=== PATIENT | female | born 1950 | race American Indian/Alaskan Native ===

== ENCOUNTER 2016-05-23 21:38 | Emergency (ER) | payer MEDICARE, OTHER ==
[2016-05-23 23:06] LABS: Basophils % (Auto) 0.7 % (0.0-1.8); Eosinophils % (Auto) 2.6 % (0.0-4.3); Hematocrit 37.8 % (30.3-42.9); Hemoglobin 11.9 gm/dl (10.1-14.3); Mean Corpuscular HGB Conc 32 % (30-34); Platelet Count 306 K/mm3 (140-440); Red Cell Distribution Width 16.2 % (13.2-15.2); White Blood Count 5.5 K/mm3 (4.5-11.0)
[2016-05-23 23:11] LABS: Mean Corpuscular Hemoglobin 21 pg (28-32); Mean Corpuscular Volume 67 fl (79-97)
[2016-05-23 23:17] LABS: Anion Gap 19 mmol/L; BUN/Creatinine Ratio 12.85; Blood Urea Nitrogen 9 mg/dL (7-17); Calcium 9.4 mg/dL (8.4-10.2); Carbon Dioxide 25 mmol/L (22-30); Chloride 99.9 mmol/L (98-107); Glucose 123 mg/dL (65-100); Potassium 3.1 mmol/L (3.6-5.0); Sodium 141 mmol/L (137-145)
--- NOTE | 2016-05-24 02:26 | Emergency Department Report ---
ED Chest Pain HPI - General Chief Complaint: Chest Pain Stated Complaint: RT RIB PAIN Time Seen by Provider: 05/24/16 02:05 Source: patient Mode of arrival: Ambulatory Limitations: No Limitations - History of Present Illness Initial Comments: This is a 66-year-old Afro-[place] female who presents to the emergency department, driven in by her son, with complaint of a one-week history of right sided chest/chest wall pain. It radiates around to the back. She denies any shortness of breath, nausea, vomiting or diaphoresis. She denies any trauma. She was seen by her primary care doctor on Saturday, Dr. Semaj Canales, and was prescribed some medication for GERD, pain medication, and an antibiotics for a UTI at that time. Patient has a history of hypertension but denies any history of CO, CVA, PE/DVT. She denies tobacco or illicit drug use or abuse. No recent travel or sick contacts at home. Severity scale (0 -10): 10 - Related Data Previous Rx's Medication Instructions Recorded Last Taken Type HYDROcodone/APAP 5-325 [Rice 1 each PO Q6HR PRN #12 tablet 05/24/16 Unknown Rx 5/325] Allergies Allergy/AdvReac Type Severity Reaction Status Date / Time Sulfa (Sulfonamide Allergy Vomiting Verified 05/23/16 22:02 Antibiotics) BJ score - Bj Score Age > 65: (0) No Aspirin use within the Past 7 Days: (0) No 3 or more CAD Risk Factors: (0) No 2 or more Angina events in past 24 hrs: (1) Yes Known CAD with more than 50% Stenosis: (0) No Elevated Cardiac Markers: (0) No ST Deviation Greater than 0.5mm: (0) No BJ Score: 1 ED Review of Systems ROS: Stated complaint: RT RIB PAIN Other details as noted in HPI Comment: All other systems reviewed and negative Constitutional: denies: chills, fever Eyes: denies: eye pain, eye discharge, vision change ENT: denies: ear pain, throat pain Respiratory: denies: cough, shortness of breath, wheezing Cardiovascular: chest pain. denies: palpitations Gastrointestinal: denies: abdominal pain, nausea, diarrhea Genitourinary: denies: urgency, dysuria, discharge Musculoskeletal: back pain. denies: arthralgia Skin: denies: rash, lesions Neurological: denies: headache, weakness, paresthesias ED Past Medical Hx - Past Medical History Previous Medical History?: Yes Hx Hypertension: Yes - Surgical History Past Surgical History?: Yes Hx Cholecystectomy: Yes - Social History Smoking Status: Never Smoker Substance Use Type: Prescribed - Medications Home Medications: Home Medications Medication Instructions Recorded Confirmed Last Taken Type HYDROcodone/APAP 5-325 [Rice 1 each PO Q6HR PRN #12 tablet 05/24/16 Unknown Rx 5/325] ED Physical Exam - General Limitations: No Limitations - Other Other exam information: GENERAL: The patient is well-developed well-nourished. HEENT: Normocephalic. Atraumatic. Extraocular motions are intact. Patient has moist mucous membranes. Pupils equal reactive to light bilaterally. NECK: Supple. Trach is midline. CHEST/LUNGS: Patient has reproducible tenderness to palpation to the right rib cage/chest wall, just below the breast. No tachypnea or accessory muscle use. There is no respiratory distress noted. HEART/CARDIOVASCULAR: Regular. There is no tachycardia. There is no gallop rub or murmur. ABDOMEN: Abdomen is soft, nontender. Patient has normal bowel sounds. There is no abdominal distention. SKIN: Skin is warm and dry. NEURO: The patient is awake, alert, and oriented. The patient is cooperative. The patient has no focal neurologic deficits. The patient has normal speech. MUSCULOSKELETAL: There is no tenderness or deformity. There is no limitation range of motion. There is no evidence of acute injury. ED Course Vital Signs 05/23/16 05/23/16 21:53 22:03 Temperature 98.6 F 98.6 F Pulse Rate 73 73 Respiratory 18 20 Rate Blood Pressure 176/93 Blood Pressure 176/93 176/93 [Right] O2 Sat by Pulse 100 100 Oximetry ED Medical Decision Making - Lab Data Result diagrams: 05/23/16 22:41 05/23/16 22:41 - EKG Data -: EKG Interpreted by Me EKG shows normal: sinus rhythm, axis, intervals, QRS complexes (incomplete right bundle branch block), ST-T waves Rate: normal - EKG Data When compared to previous EKG there are: previous EKG unavailable Interpretation: other (complete right bundle-branch block) - Radiology Data Radiology results: report reviewed, image reviewed interpreted by me: Chest x-ray did not show any acute process. Heart is normal shape and size. No effusions. No pneumothorax. No signs of pneumonia seen. CT angiography of the chest does not show any pulmonary embolism, aortic dissection, aneurysm. There may be some signs of COPD. - Medical Decision Making 66-year-old female presents to the emergency department with a two-week history of some right-sided chest discomfort that radiates towards the back. EKG shows a incomplete right bundle branch block but no ST elevation CO or dysrhythmia. Labs show negative troponins 3. There is some hypokalemia but it is replaced with potassium chloride. There is a d-dimer of [address] angiography of the chest was done. CT does not show any PE, aneurysm or dissection or any acute process. Her discomfort is reproducible to palpation. Vital signs stable throughout her ED course. For all these reasons patient appears safe for discharge home. She was discharged with some pain medication and a referral for cardiology. She will return to the ER with any worsening of her symptoms or any acute distress. - Differential Diagnosis costochondritis, CO, PE, muscle spasm Critical Care Time: No Critical care attestation.: If time is entered above; I have spent that time in minutes in the direct care of this critically ill patient, excluding procedure time. ED Disposition Clinical Impression: Right-sided chest pain, Costochondritis, Hypokalemia Hypertension Qualifiers: Hypertension type: essential hypertension Qualified Code(s): I10 - Essential ( primary) hypertension Disposition: DISCHARGED TO HOME OR SELFCARE Is pt being admited?: No Condition: Stable Instructions: Chest Pain (ED), Costochondritis (ED), Hypertension (ED) Additional Instructions: Please follow-up with your primary care doctor in the next few days. I have also given you a referral for a local golf club head inspector and adjuster, , to follow-up regarding your chest pain as you may be due for an outpatient stress test. Return to the emergency department with any worsening of your symptoms or any acute distress.You've been prescribed a medication that is sedating. Therefore this medication cannot be mixed with alcohol, or taken prior to driving, working , or being responsible for children. Prescriptions: HYDROcodone/APAP 5-325 [Rice 5/325] 1 each PO Q6HR PRN #12 tablet PRN Reason: Pain Referrals: SEMAJ CANALES MD [Primary Care Provider] - 3-5 Days JEFF RIVEAR MD [Staff Physician] - 3-5 Days Time of Disposition: 06:14
--- NOTE | 2016-05-24 05:50 | Cat Scan Report ---
FINAL REPORT PROCEDURE: CT ANGIO CHEST TECHNIQUE: Computerized tomographic angiography of the chest was performed after the IV injection of iodinated nonionic contrast including image processing. The image data was postprocessed using 2-dimensional multiplanar reformatted (MPR) and 3-dimensional (MIP and/or volume rendered) techniques. HISTORY: CP pain, elevated dimer COMPARISON: No prior studies are available for comparison. FINDINGS: Heart and pericardium: Normal. Thoracic aorta: Normal. Pulmonary vasculature: No evidence of pulmonary arterial emboli.. Lymph nodes: No enlarged thoracic lymph nodes. Lungs: Mild COPD. No consolidation, effusion or pneumothorax. The central airway is patent. Pleural space: No effusion, thickening, or pneumothorax. Musculoskeletal structures: No significant abnormality. Upper abdominal structures: No significant abnormality. IMPRESSION: There is no evidence of pulmonary arterial emboli. COPD. No evidence of acute infiltrate or effusion.
[2016-05-24] MEDS: NACL ONE (06:13)
[2016-05-24] MEDS ORDERED: K-DUR PO ONE (06:13)
[2016-05-24] MEDS: MORPHINE IV ONE (06:13)
[2016-05-24] MEDS: K-DUR PO ONE (06:21)
[2016-05-24 06:46] VITALS: BP 106/56
--- NOTE | 2016-05-24 07:15 | XRay Report ---
AP CHEST: HISTORY: chest pain AP view of the chest demonstrates a normal mediastinal and cardiac contour with clear lungs and normal bony and soft tissue structures. IMPRESSION: Unremarkable AP chest.
== END 2016-05-24 06:44 | disposition home or self-care (01) ==
LOC: ED 21:38
DX: M94.0 Chondrocostal junction syndrome [Tietze] (principal); E87.6 Hypokalemia; I10 Essential (primary) hypertension; Z90.49 Acquired absence of other specified parts of digestive tract; Z88.2 Allergy status to sulfonamides
CPT/HCPCS: 36415; 71010; 71275; 80048; 84484; 85025; 85379; 96374; 99285; J2270; Q9967